=== PATIENT | female | born 1985 | race Caucasian/White ===

== ENCOUNTER 2017-07-07 14:59 | Outpatient (CLI) | payer OTHER | END 2017-07-07 15:00 | disposition home or self-care (01) | LOC: LAB.F 14:59 | PROVIDERS: ATTEND Midwife | DX: Z13.9 Encounter for screening, unspecified (principal) | CPT/HCPCS: 36415; 84144 ==

== ENCOUNTER 2017-09-01 08:00 | Outpatient (CLI) | payer OTHER | END 2017-09-01 08:01 | disposition home or self-care (01) | LOC: LAB.F 08:00 | PROVIDERS: ATTEND Midwife | DX: Z31.9 Encounter for procreative management, unspecified (principal) | CPT/HCPCS: 36415; 81599; 86644; 86645; 86900; 86901; 87497 ==

== ENCOUNTER 2018-03-09 14:46 | Outpatient (CLI) | payer OTHER | END 2018-03-09 14:47 | disposition home or self-care (01) | LOC: LAB.F 14:46 | PROVIDERS: ATTEND Midwife | DX: Z31.9 Encounter for procreative management, unspecified (principal) | CPT/HCPCS: 36415; 81599; 84702 ==

== ENCOUNTER 2018-06-01 16:17 | Outpatient (CLI) | payer MEDICAID | END 2018-06-01 16:18 | disposition home or self-care (01) | LOC: LAB 16:17 | PROVIDERS: ATTEND Nurse Practitioner Obstetrics & Gynecology | DX: Z34.00 Encounter for supervision of normal first pregnancy, unspecified trimester (principal) | CPT/HCPCS: 36415; 81599; 82105; 82677; 84702; 86336 ==

== ENCOUNTER 2018-07-07 13:22 | Outpatient (CLI) | payer MEDICAID ==
--- NOTE | 2018-07-11 07:11 | Ultrasound Report ---
Reason: SUPERVISION,NORMAL ,PRIMIGRAVIDA Procedure Date: 07/07/2018 Accession Number: [id number] / [id number] Procedure: US - OB Detailed Eval CPT Code: FULL RESULT: EXAM: COMPLETE OBSTETRICAL ULTRASOUND EXAM DATE: 07/07/2018 04:30 PM. CLINICAL HISTORY: anatomic survey. COMPARISON: None. TECHNIQUE: Real-time sonographic evaluation of the fetus performed by the service line coordinator. Multiple financial service representative static images were saved for review. DATING: Established EGA 21 weeks 4 days with ANUM 11/13/2018 based on physician stated dating. EGA 21 weeks 0 days with ANUM 11/17/2018 based on the current ultrasound. GENERAL EVALUATION Wilson . Cardiac activity: 150 bpm. movement: Visualized. Presentation: Variable. Placenta: Posterior position. No evidence for previa. Umbilical cord: 3 vessel cord. Central placental cord origin. Amniotic fluid: Subjectively normal. MVP 5.3 cm. KIM: 15.6 cm. BIOMETRY Bi-Parietal Diameter (BPD): 5.25 cm, 21 weeks 6 days. Head Circumference (HC): 19.21 cm, 21 weeks 3 days. Abdominal Circumference (AC): 16.76 cm, 21 weeks 5 days. Femur Length (FL): 3.59 cm, 21 weeks 2 days. Estimated Weight: 436 g, 45th percentile for 21 weeks 4 days. ANATOMY The intracranial structures, profile, face/nose/lips, spine, 4 chamber heart and outflow tracts, stomach, abdominal wall and cord insertion, diaphragm, kidneys, bladder, and extremities were visualized and demonstrate no abnormality. MATERNAL STRUCTURES Uterus: Unremarkable. Cervix: Long and closed. Transabdominal length 5.4 cm. Right ovary/adnexa: Unremarkable. Left ovary/adnexa: Unremarkable. Free fluid: None. IMPRESSION: 1. Wilson live intrauterine with gestational age 21 weeks 4 days based on stated dating. 2. Estimated weight is within expected limits for assigned dating. 3. Normal anatomic survey. No anatomic abnormalities are detected at this time. RADIA
== END 2018-07-07 13:23 | disposition home or self-care (01) ==
LOC: DI 13:22
PROVIDERS: ATTEND Nurse Practitioner Obstetrics & Gynecology
DX: Z34.00 Encounter for supervision of normal first pregnancy, unspecified trimester (principal)
CPT/HCPCS: 76811

== ENCOUNTER 2018-07-29 13:49 | Outpatient (CLI) | payer MEDICAID ==
[2018-07-29 15:07] LABS: HGB - HEMOGLOBIN 9.8 g/dL (12.0-16.0); MEAN CORPUSCULAR HEMOGLOBIN 30.7 pg (27.0-31.0); MEAN CORPUSCULAR HGB CONC 33.7 g/dL (32.0-36.0); MEAN PLATELET VOLUME 7.6 fL (7.9-10.8); RED BLOOD COUNT 3.18 10^6/uL (4.20-5.40); RED CELL DISTRIBUTION WIDTH 14.2 % (12.0-15.0); WHITE BLOOD COUNT 8.3 x10^3/uL (4.8-10.8)
== END 2018-07-29 13:50 | disposition home or self-care (01) ==
LOC: LAB 13:49
PROVIDERS: ATTEND Registered Nurse
DX: Z34.00 Encounter for supervision of normal first pregnancy, unspecified trimester (principal)
CPT/HCPCS: 36415; 82950; 85027; 86850

== ENCOUNTER 2018-09-03 10:12 | Outpatient (CLI) | payer MEDICAID ==
[2018-09-03 11:37] VITALS: BP 114/60
[2018-09-03 11:42] LABS: BILIRUBIN,URINE NEGATIVE (NEGATIVE); GLUCOSE, URINE (UA) NEGATIVE (NEGATIVE); KETONES,URINE (UA) NEGATIVE (NEGATIVE); LEUKOCYTE ESTERASE, URINE NEGATIVE (NEGATIVE); NITRITE,URINE NEGATIVE (NEGATIVE); OCCULT BLOOD,URINE NEGATIVE (NEGATIVE); PROTEIN,URINE NEGATIVE (NEGATIVE); UROBILINOGEN,URINE 0.2 (NORMAL) E.U./dL (NORMAL)
[2018-09-03 11:47] LABS: CLARITY,URINE CLEAR (CLEAR)
[2018-09-03 12:00] LABS: BACTERIA,URINE Rare /HPF (None Seen); RBC,URINE 0-5 /HPF (0-5); SQUAMOUS EPITHELIAL CELL,UR RARE Squamous (<= Few)
--- NOTE | 2018-09-05 13:47 | PROCEDURE REPORT ---
- HPI Diagnosis/Indication for NST: Other (abdominal discomfort) Current EDU 11/13/18 Gestation 29 Weeks and 6 Days 1 Para 0 Vital Signs Temperature 37 C 09/03/18 10:35 Heart Rate 66 09/03/18 10:35 Respiratory Rate 16 09/03/18 10:35 Blood Pressure 114/60 09/03/18 10:35 Temperature 37 C 09/03/18 10:35 Heart Rate 66 09/03/18 10:35 Respiratory Rate 16 09/03/18 10:35 Blood Pressure 114/60 09/03/18 10:35 O2 Saturation - NST Procedure NST reactive & reassuring over a period of 20 minutes, Cat I consistently; some uterine irritability, no contraction activity. - Results and Plan Findings/Impression: NST reactive, reassuring, cat I consistently; no uterine contractions; FFN collected by RN--negative; UA collected, negative. No progressive pain; etiology of discomfort likely musculoskeletal, particularly as s/p orgasm & not progressive over time. Plan: d/c to home w/ warning s/sx, reasons to call f/u in clinic w/ next scheduled visit, earlier PRN reviewed PTL s/sx, FKC; pt has emergency contact information
== END 2018-09-03 12:15 | disposition home or self-care (01) ==
LOC: WFO 10:12 → FBP 10:15 → WFO 12:15
PROVIDERS: ATTEND Registered Nurse
DX: O99.89 Other specified diseases and conditions complicating pregnancy, childbirth and the puerperium (principal); R10.9 Unspecified abdominal pain; Z3A.29 29 weeks gestation of pregnancy
CPT/HCPCS: 81001; 82731; 87086; 99213

== ENCOUNTER 2018-09-28 15:24 | Outpatient (CLI) | payer MEDICAID ==
[2018-09-28 15:38] LABS: HGB - HEMOGLOBIN 10.7 g/dL (12.0-16.0); MEAN CORPUSCULAR HEMOGLOBIN 31.2 pg (27.0-31.0); MEAN CORPUSCULAR HGB CONC 34.1 g/dL (32.0-36.0); MEAN CORPUSCULAR VOLUME 91.4 fL (81.0-99.0); MEAN PLATELET VOLUME 8.1 fL (7.9-10.8); RED BLOOD COUNT 3.42 10^6/uL (4.20-5.40); RED CELL DISTRIBUTION WIDTH 13.6 % (12.0-15.0)
== END 2018-09-28 15:25 | disposition home or self-care (01) ==
LOC: LAB 15:24
PROVIDERS: ATTEND Nurse Practitioner Obstetrics & Gynecology
DX: O99.019 Anemia complicating pregnancy, unspecified trimester (principal)
CPT/HCPCS: 36415; 85025; 85027

== ENCOUNTER 2018-10-17 15:16 | Outpatient (CLI) | payer MEDICAID | END 2018-10-17 23:59 | disposition home or self-care (01) | LOC: LAB.R 15:16 | PROVIDERS: ATTEND Obstetrics & Gynecology | DX: Z34.00 Encounter for supervision of normal first pregnancy, unspecified trimester (principal) | CPT/HCPCS: 87797 ==

== ENCOUNTER 2018-10-28 03:47 | Inpatient (IN) | payer MEDICAID ==
[2018-10-28] MEDS ORDERED: ONDANSETRON 4 MG/2 ML VIAL IVP PRN (03:50)
[2018-10-28] MEDS ORDERED: SODIUM CHLORIDE FLUSH 0.9% 10 ML SYRINGE IVP PRN (03:50)
[2018-10-28] MEDS ORDERED: fentaNYL 100 MCG/2 ML VIAL IVP PRN (03:50)
[2018-10-28] MEDS ORDERED: LACTATED RINGERS 1,000 ML IV SCH (04:00)
[2018-10-28] MEDS ORDERED: LIDOCAINE-MPF 1% 30 ML VIAL ONE ×2 (04:12→07:27)
[2018-10-28] MEDS ORDERED: miSOPROStol 200 MCG TABLET ONE (04:12)
[2018-10-28 04:21] LABS: BASOPHILS % (AUTO) 0.2 %; EOSINOPHILS % (AUTO) 0.2 %; HGB - HEMOGLOBIN 11.8 g/dL (12.0-16.0); LYMPHOCYTES # (AUTO) 1.8 10^3/uL (1.5-3.5); LYMPHOCYTES % (AUTO) 13.7 %; MEAN CORPUSCULAR HEMOGLOBIN 30.7 pg (27.0-31.0); MEAN CORPUSCULAR VOLUME 90.4 fL (81.0-99.0); MEAN PLATELET VOLUME 11.2 fL (7.9-10.8); MONOCYTES # (AUTO) 0.8 10^3/uL (0.0-1.0); NEUTROPHILS # (AUTO) 10.3 10^3/uL (1.5-6.6); NEUTROPHILS % (AUTO) 79.6 %; PLT - PLATELET COUNT 203 10^3/uL (130-450); RED BLOOD COUNT 3.84 10^6/uL (4.20-5.40); WHITE BLOOD COUNT 12.9 x10^3/uL (4.8-10.8)
--- NOTE | 2018-10-28 05:27 | HISTORY & PHYSICAL EXAMINATION ---
Admit History - Visit Reason Visit Reason: Contractions - : 1 Parity: 0 Premature: 0 Ectopic: 0 : 0 Care: positive: [facility] Risk/History: positive: None Complications This : positive: None Smoking Status: Never smoker - Mother's Labs Mother's Blood Type: positive: A Mother's RH: positive: Positive GBS: positive: Group B Step Negative Rubella Status: positive: Non-immune Review of Systems - Constitutional Constitutional: denies: Fatigue, Fever, Chills, Malaise - Eyes Eyes: denies: Blurred vision, Spots in vision, Dipolpia - Cardiovascular Cariovascular: denies: Chest pain, Edema - Respiratory Respiratory: denies: SOB at rest - Gastrointestinal Gastrointestinal: denies: Abdominal pain, Constipation, Diarrhea, Nausea, Vomiting - Integumentary Integumentary: denies: Rash, Pruritis - Neurological Neurological: denies: Headache, Dizziness - Psychiatric Psychiatric: denies: Depression, Anxiety Physical - Abdominal Exam Contraction Frequency (min/apart): 2-5 Contraction Intensity: positive: Strong Uterine Resting Tone: positive: Soft - Monitoring Heart Rate Baseline: 130 Strip Review: positive: Category I - Presentation Presentation: positive: Vertex - Vaginal Exam Dilation (in cm): 9 Effacement (%): 100 Station: positive: 0 - Speculum Exam Speculum Exam Performed: positive: No Plan for Labor - Plan For Labor I expect patient to be DC'd or transferred within 96 hours.: Yes Plan for Labor: HPI: This 33yo @ 37.5wks gestation by LMP c/w first trimester US. This is a result of IUI and she and her partner had 14 IUI attempts prior to conception. She has been a patient of [facility] for the duration of her which has been complicated only by first and second trimester bleeding in secondary to subchorionic hemorrhage as well as anemia for which she took ferrous sulfate bid since 28wks gestation. She presents to [facility] on 10/28/2018 at approximately 0330 with c/o contractions which began at approximately 2230 on 10/27/2018. Upon arrival she was noted to be 9/100/-1, vertex with intact membranes. She was admitted to [facility] for expecta nt management. G1: Current PMHx: Ovarian cysts Surgical Hx: [place] teeth removal Social Hx: Never smoker, No ETOH or IVDA. Debby Family Hx: Breast cancer - mother, maternal grandmother; heart disease Paternal grandfather; Lymphoma - Paternal grandmother labs: Hgb 10.7; Hct 31.2 PLT 191 A positive, antibody negative Rubella non-immune GC/CT neg Hep B neg RPR non-reactive HIV neg Hgb A1C 4.9 Hep C neg 1 hour GTT 87 GBS NEGATIVE Ultrasounds: FAS @ 21wks WNL. Posterior placenta, no previa. 3VC. Size c/w dating Physical Exam: Normocephalic, Atraumatic Heart RRR w/o M/G/R Lungs CTAB Abdomen gravid, soft, nontender EFW 3200g Bilateral LE's no edema Assessment: 33yo @ 37.5wks gestation by LMP c/w first trimester U/S Active labor GBS negative Plan: Admit to [facility] for expectant management Encouraged ambulation and position changes Anticipate spontaneous vaginal delivery
--- NOTE | 2018-10-28 05:30 | PROVIDER PROGRESS NOTE ---
Labor Progress Note - Uterine Monitoring Uterine Monitoring Mode: positive: External toco Contraction Frequency (min/apart): 2-4 Contraction Intensity: positive: Strong Uterine Resting Tone: positive: Soft - Monitoring Monitor Mode: positive: External ultrasound Heart Rate Baseline: 130 Heart Rate Variability: positive: Moderate (6-25 bmp) Accelerations: positive: Present, 15x15 Decelerations: positive: Early, Variable Strip Review: positive: Category I - Vaginal Exam Dilation (in cm): 10 Effacement (%): 100 Station: 0 - Labor Progress Note Labor Progress Note/Additional Text: S: Pt sitting comfortably in bed in an inclined position with a right later tilt. She is breathing through contractions and is coping well. Has begun to feel increased rectal pressure with contraction. She feels she does not want to engage in closed glotus pushing at this time and prefers to breathe through contractions. Debby is supportive at the bedside. O: FHR baseline 130, moderate variability + accels, intermittent early decelerations, occasional variable decelerations Contractions palpate strong every 2-4 minutes with soft resting tone. SVE c/c/0 AROM @ 0455 was noted to be small amount of clear fluid A: 33yo @ 3.,5wks gestation Active labor GBS neg FHR Category I P: Continuous monitoring Continue expectant management Encouraged position changes in bed. Reviewed pushing efforts and technique Anticipate spontaneous vaginal delivery
[2018-10-28] MEDS: OXYTOCIN/SODIUM CHLORIDE 500 ML IV PRN ×2 (07:00→07:30)
[2018-10-28] MEDS ORDERED: miSOPROStol 100 MCG TABLET PO SCH ×2 (08:00→09:00)
--- NOTE | 2018-10-28 08:36 | DELIVERY NOTE ---
Delivery Note - Labor Labor: positive: Augmented by ARM - Infant Delivery Method Delivery Method: positive: Spontaneous vaginal delivery - Presentation Presentation: positive: Vertex, MALENA - left occiput anterior - Nuchal Cord Nuchal Cord: positive: None - Amniotic Fluid Description Amniotic Fluid Description: positive: Clear - Episiotomy Type Episiotomy Type: positive: None - Laceration Laceration: positive: 1st degree, 2nd degree, Perineal, Vaginal - Suture Suture Type: positive: Vicryl Suture Size: positive: 2-0, 3-0 - Delivery Outcome Delivery Outcome: positive: Livebirth - [place]: positive: Placed in direct skin contact with mother, Bulb syringe, Stimulated, Warmed, [place] used [place] sex: positive: Female - Cord Cord: positive: 3 vessels - Placenta Placenta: positive: Intact, Spontaneous - Estimated Blood Loss Estimated Blood Loss (in cc): 400 - Post Delivery Events Post Delivery Events: positive: No post delivery events - Delivery Comments (Free Text/Narrative) Delivery Comments (Free Text/Narrative): Labor: 33yo @ 37.5wks gestation by LMP presented to [facility] with c/o contractions. UPon arrival she was noted to b 9/100/-1 and vertex with intact membranes. FHR pattern demonstrated a baseline 130s in a Category I pattern throughout labor. Normal labor course. AROM occurred at 0455 and was noted to be a small amount of clear fluid. Patient progressed to c/c/0 @0455. : Normal of viable female at 0649 on 10/28/2018. No nuchal cord. 's 9/9 at 1 and 5 min respectively. The was placed on maternal abdomen, stimulated, dried, and placed skin to skin. Pitocin administered via IV for hemostasis. The umbilical cord was allowed to stop pulsating at which time it was doubly clamped by CNM and cut by pt's partner. Cord blood was obtained. Placenta delivered spontaneously and intact at 0655. Rate of bleeding noted to be brisk despite vigorous fundual massage and pitocin running open to gravity. 800mcg BC misoprostol administered and rate of bleeding began to slow. EBL 400mL. Uterine fundus firm and there is no excessive bleeding. The perineum, vagina, and cervix were inspected and found to have 2nd degree vaginal laceration which was repaired using 2-[address]-1 needle in addition to a right labial laceration which was repaired using a 3-[address]-1 needle in standard fashion under sterile conditions. Vaginal and rectal examinations following repair were completed. Tissues well approximated. initiated. Family bonding well. Both mother and baby were left in stable condition.
[2018-10-28] MEDS ORDERED: OXYTOCIN/SODIUM CHLORIDE 500 ML IV PRN (08:37)
[2018-10-28] MEDS: IBUPROFEN 800 MG TABLET PO SCH ×3 (09:03→21:25)
[2018-10-28] MEDS: ACETAMINOPHEN 500 MG TABLET PO SCH ×2 (09:04→17:00)
[2018-10-28] MEDS: DOCUSATE SODIUM 100 MG CAPSULE PO SCH ×2 (09:04→21:25)
[2018-10-29] MEDS: ACETAMINOPHEN 500 MG TABLET PO SCH ×4 (01:31→19:50)
[2018-10-29] MEDS: IBUPROFEN 800 MG TABLET PO SCH ×3 (03:48→14:55)
--- NOTE | 2018-10-29 07:55 | Discharge Plan ---
Discharge Plan Problem Reviewed?: Yes Disposition: Home, Self Care Condition: Good Diet: Regular Activity Restrictions: No Restrictions Shower Restrictions: No Driving Restrictions: No Weight Bearing: Full Weight No Smoking: If you smoke, Please STOP! Call for help. Follow-up with: Halina Mondragon CNM, ARNP [Provider Admit Priv/Credential] -
--- NOTE | 2018-10-29 08:01 | PROVIDER PROGRESS NOTE ---
Subjective - Subjective Subjective: S: Bonding well with baby. without difficulty. Bleeding decreased and is light. Pain well controlled with oral medications. Partner supportive at the bedside. O: Heart RRR w/o M/G/R, lungs CTAB, abdomen soft and nontender with fundus firm at U-2, bilateral LE's no edema. BP 121/56, T 37.1, HR 79, RR 18 A: 33yo PPD#1 s/p TSVD of viable female infant 2nd degree perineal laceration - intact P: Reviewed self care and warning s/sx Advised continuation of PNV while Advised continuation of PO ibuprofen and tylenol for pain management PRN F/u in 1 week for support visit and in 3 weeks for routine visit or sooner PRN. Pt and partner verbalized understanding and agree to above plan. They deny further questions or concerns at this time. Objective - Vital Signs/Intake & Output Vital Signs: Vital Signs x48h Temp Pulse Resp BP Pulse Ox 10/29/18 04:05 37.1 C 79 18 121/56 L 99 10/29/18 00:00 37.0 C 84 18 95/73 100 Intake & Output: Intake & Output 10/26/18 10/27/18 10/28/18 10/29/18 23:59 23:59 23:59 23:59 Intake Total 1315 Output Total 2900 Balance -1585 - Lab Results Fish Bones: 10/28/18 04:10
--- NOTE | 2018-10-29 08:16 | DISCHARGE SUMMARY ---
Physician: GAGE Traore DATE OF ADMISSION: 10/28/2018 DATE OF DISCHARGE: 10/30/2018 DIAGNOSES ON ADMISSION 1. A 33-year-old G1, P0 at 37.5 weeks gestation. 2. Active labor. 3. Group B Streptococcus negative. DIAGNOSES ON DISCHARGE 1. A 33-year-old G1, P1-0-0-1, status post spontaneous vaginal delivery on 10/28/2018. 2. Second-degree perineal laceration. 3. . 4. Normal recovery. HISTORY OF PRESENT ILLNESS: She is a patient of [facility] who presented on 10/28/2018 with complaints of contractions. The patient was found to contract every 1-5 minutes and her cervix was 9 cm dilated, 100% effaced, and 0 station. She was augmented with artificial rupture of membranes. She progressed to spontaneously deliver a viable female named Lakhwinder at 0649 on 10/28/2018. Apgars were 9 and 9 at 1 and 5 minutes respectively. The patient received Pitocin via IV for hemostasis, in addition to 800 mcg of BC misoprostol for adequate hemostasis. EBL 400 mL The patient had a second-degree perineal laceration that was repaired using a 2-0 Vicryl on a CT1 needle in standard fashion under sterile conditions. She has been doing well in her course. She is ambulating and tolerating a regular diet. She is urinating without difficulty and her lochia is normal. Her pain is well controlled with oral medications. She will be discharged home today on day #1 with instructions to continue her vitamin while , and to take ibuprofen and Tylenol [id number] for pain management as needed. She intends to followup with myself at [facility] in 3 weeks for routine visit. She has been given precautions to call if she has any worsening fevers, chills, abdominal pain, increased bleeding or foul-smelling vaginal lochia. TD: 10/29/2018 08:06 WARNER
[2018-10-29] MEDS: DOCUSATE SODIUM 100 MG CAPSULE PO SCH ×2 (09:15→21:25)
[2018-10-29] MEDS: IBUPROFEN 800 MG TABLET PO PRN (23:52)
--- NOTE | 2018-10-30 08:39 | PROVIDER PROGRESS NOTE ---
Subjective - Subjective Subjective: FINAL PROGRESS NOTE: S: Bonding well with baby. Had some struggles with yesterday so they elected to stay last night rather than being discharged secondarily. They are feeling better today about being discharged but are continuing to have some struggles with . Pain well managed with oral medications. Bleeding decreased and is light. Partner supportive at the bedside. O: BP 127/84, HR 83, T 36.9, RR 16 A: 33yo -->P1 PPD#2 s/p TSVD of viable female infant 2nd degree perineal laceration - intact P: Discharge home today on PPD#2 - Discharge held yesterday and discharge summary revised accordingly. Reviewed pp self care and warning s/sx and when to present Lengthy discussion about and timing of feeding. F/u in 1 week at [facility] for support visit. Pt verbalized understanding and agrees to above plan. She denies further questions or concerns at this time. Objective - Vital Signs/Intake & Output Vital Signs: Vital Signs x48h Temp Pulse Resp BP Pulse Ox 10/30/18 06:20 36.9 C 83 16 127/84 H 100 Intake & Output: Intake & Output 10/27/18 10/28/18 10/29/18 10/30/18 23:59 23:59 23:59 23:59 Intake Total 1315 Output Total 2900 Balance -1585 - Lab Results Fish Bones: 10/28/18 04:10
[2018-10-30] MEDS: DOCUSATE SODIUM 100 MG CAPSULE PO SCH (09:50)
[2018-10-30] MEDS: ACETAMINOPHEN 500 MG TABLET PO SCH (09:50)
[2018-10-30] MEDS: IBUPROFEN 800 MG TABLET PO PRN (09:50)
[2018-10-30] MEDS ORDERED: MEASLES,MUMPS & RUBELLA VACC 0.5 ML VIAL SUBQ ONE (11:29)
[2018-10-30 13:48] VITALS: BP 126/80
--- NOTE | 2018-10-30 14:24 | Labor Flowsheet ---
Labor Flowsheet Datetime Report Generated by CPN: 10/30/2018 14:23 Datetime: 10/30/2018 13:44 VITAL SIGNS NBP Sys/Maribell/Mean (mmHg): 126 : 80 : 92 Pulse: 89 SpO2 (%): 100 LaborFlag: Labor Datetime: 10/28/2018 06:48 UTERINE ACTIVITY Monitor Mode: External Monitor Interventions for UA: [place] Adjusted Frequency (min): 3 Quality: Moderate Duration (sec): 80-120 Pattern: Normal: <= 5 Contractions in 10 Minutes Resting Tone (Palpate): Relaxed ASSESSMENT A Monitor Mode: External US Monitor Interventions for FHR: Ultrasound Adjusted FHR Baseline Rate : 110 Variability: Moderate 6-25 bpm Accelerations: None Decelerations: Early; Variable Category: Category II Comments: loss of tracing with contraction and pushing Pain Presence: Constant Pain Type: Burning; Contraction Pain Location: Perineum Pain Relief Measures: Comfort Measures Pain Coping: Breathing Through Contractions; Declines Medication or Epidural PATIENT CARE Oxygen Method: Room Air Comfort Measures: Breathing/Relaxation; Coaching; Hot/Cold Pack; Family Support STAGE 2 Pushing: Urge to Push Pushing Position: Pushing with Contractions; Pushing Right Side Pushing Progress: Descent with Pushing; Perineal Bulging; Rectal Bulging; Presenting Part Visible; with Pushing; Pushing Effectively with Contractions Datetime: 10/28/2018 06:45 I/O Interventions: Ice Chips Given Datetime: 10/28/2018 06:30 Patient Position/Activity: Left Tilt COMMUNICATION Communication: Provider at Bedside Provider Notified (Name): AHanna Ortegar CNM Datetime: 10/28/2018 05:54 Respirations: 20 Datetime: 10/28/2018 05:44 PAIN Pain Scale: 8 Hygiene: Underpad Changed Datetime: 10/28/2018 04:55 VAGINAL EXAM Dilatation (cm): 10.0 Effacement (%): 100 Exam by: A Alanna CNM Membranes Rupture Method: Spontaneous Amniotic Fluid Color: Clear Amniotic Fluid Amount: Small Amniotic Fluid Odor: Normal Datetime: 10/28/2018 04:32 Temperature (C): 36.6 Datetime: 10/28/2018 04:29 MATERNAL ASSESSMENT Level of Consciousness: Fully Conscious Headache: Denies Breath Sounds, Left: Clear and Equal Breath Sounds, Right: Clear and Equal Nausea/Vomiting: Denies RUQ Epigastric Pain: Denies
== END 2018-10-30 14:20 | disposition home or self-care (01) | DRG 807 ==
LOC: WFO 03:47 → FBP 03:48 → WFO 03:55 → FBP 03:56
PROVIDERS: ADMIT Nurse Practitioner Obstetrics & Gynecology; ATTEND Nurse Practitioner Obstetrics & Gynecology
PROC: 10E0XZZ Delivery of Products of Conception, External Approach (ICD-10-PCS; principal; 2018-10-28)
PROC: 0KQM0ZZ Repair Perineum Muscle, Open Approach (ICD-10-PCS; 2018-10-28)
PROC: 0HQ9XZZ Repair Perineum Skin, External Approach (ICD-10-PCS; 2018-10-28)
PROC: 10907ZC Drainage of Amniotic Fluid, Therapeutic from Products of Conception, Via Natural or Artificial Opening (ICD-10-PCS; 2018-10-28)
DX: O70.1 Second degree perineal laceration during delivery (principal); Z37.0 Single live birth; O70.0 First degree perineal laceration during delivery; Z3A.37 37 weeks gestation of pregnancy
CPT/HCPCS: 85025; 99213; A9270; J7120

== ENCOUNTER 2020-01-26 10:59 | Outpatient (CLI) | payer MEDICAID ==
--- NOTE | 2020-01-26 16:20 | XRAY Report ---
PROCEDURE: Foot 2 View RT INDICATIONS: TOE PAIN, RIGHT TECHNIQUE: 2 views of the foot were acquired. COMPARISON: None. FINDINGS: Bones: No fractures or dislocations. There is a minimal hallux valgus. No suspicious bony lesions. Soft tissues: There is mild soft tissue swelling medial to the first metatarsal head. There is a sma ll tibiotalar joint effusion. Achilles tendon appears intact. IMPRESSION: 1. Minimal hallux valgus with mild soft tissue swelling medial to the first metatarsal head suggestiv e of a bunion. Reviewed by: Nash Banuelos MD on 01/26/2020 3:19 PM CHRISTIANO Approved by: Nash Banuelos MD on 01/26/2020 3:19 PM AKBUCK Station ID: [id number]
== END 2020-01-26 11:00 | disposition home or self-care (01) ==
LOC: DI.S 10:59
PROVIDERS: ATTEND Registered Nurse
DX: M79.674 Pain in right toe(s) (principal); M20.11 Hallux valgus (acquired), right foot

== ENCOUNTER 2020-02-02 07:00 | Outpatient (CLI) | payer MEDICAID ==
[2020-02-02 20:16] LABS: CANDIDA GROUP DNA POSITIVE (NEGATIVE); CANDIDA KRUSEI DNA NEGATIVE (NEGATIVE); TRICHOMONAS VAGINALIS DNA NEGATIVE (NEGATIVE)
== END 2020-02-02 23:59 | disposition home or self-care (01) ==
LOC: LAB.R 07:00
PROVIDERS: ATTEND Nurse Practitioner Obstetrics & Gynecology
DX: N89.8 Other specified noninflammatory disorders of vagina (principal); L29.8 Other pruritus
CPT/HCPCS: 87661; 87801

== ENCOUNTER 2020-04-11 11:12 | Outpatient (CLI) | payer MEDICAID | END 2020-04-11 11:13 | disposition home or self-care (01) | LOC: COV 11:12 | PROVIDERS: ATTEND Family Medicine | DX: R50.9 Fever, unspecified (principal); R05 Cough; M79.10 Myalgia, unspecified site; R53.83 Other fatigue; R07.0 Pain in throat; R19.7 Diarrhea, unspecified; R09.81 Nasal congestion; Z20.828 Contact with and (suspected) exposure to other viral communicable diseases ==

== ENCOUNTER 2023-03-31 09:17 | Outpatient (CLI) | payer MEDICAID ==
[2023-03-31 14:37] LABS: BASOPHILS % (AUTO) 0.7 %; EOSINOPHILS # (AUTO) 0.1 10^3/uL (0.0-0.7); EOSINOPHILS % (AUTO) 2.4 %; HCT - HEMATOCRIT 37.6 % (37.0-47.0); HGB - HEMOGLOBIN 11.9 g/dL (12.0-16.0); LYMPHOCYTES # (AUTO) 1.8 10^3/uL (1.5-3.5); LYMPHOCYTES % (AUTO) 39.9 %; MEAN CORPUSCULAR HGB CONC 31.6 g/dL (32.0-36.0); MEAN CORPUSCULAR VOLUME 91.7 fL (81.0-99.0); MEAN PLATELET VOLUME 10.4 fL (7.9-10.8); MONOCYTES # (AUTO) 0.4 10^3/uL (0.0-1.0); MONOCYTES % (AUTO) 8.9 %; NEUTROPHILS # (AUTO) 2.2 10^3/uL (1.5-6.6); NEUTROPHILS % (AUTO) 47.9 %; PLT - PLATELET COUNT 239 10^3/uL (130-450); RED CELL DISTRIBUTION WIDTH 13.1 % (12.0-15.0); WHITE BLOOD COUNT 4.5 x10^3/uL (4.8-10.8)
[2023-03-31 14:57] LABS: % IRON SATURATION 46 % (20-50); ALBUMIN 4.5 g/dL (3.2-5.5); ALBUMIN/GLOBULIN RATIO 1.9 (1.0-2.2); ALKALINE PHOSPHATASE 51 IU/L (42-121); ALT ALANINE AMINOTRANSFERASE 9 IU/L (10-60); AST ASPARTATE AMINOTRANSFERASE 10 IU/L (10-42); BILIRUBIN,TOTAL 2.1 mg/dL (0.2-1.0); BUN - BLOOD UREA NITROGEN 15 mg/dL (6-20); CALCIUM 9.6 mg/dL (8.5-10.3); CARBON DIOXIDE - CO2 30 mmol/L (21-32); CHLORIDE 106 mmol/L (101-111); CHOL/HDL RATIO 2.4 (<4.4); CHOLESTEROL 183 mg/dL; CREATININE 0.5 mg/dL (0.6-1.3); GFR - MDRD 138 (>89); GLUCOSE 91 mg/dL (74-104); HDL CHOLESTEROL 76 mg/dL; IRON 170 ug/dL (50-212); SODIUM 141 mmol/L (135-145); TOTAL IRON BINDING CAPACITY 372 ug/dL (250-450); TOTAL PROTEIN 6.9 g/dL (6.4-8.9); TRANSFERRIN 266 mg/dL (203-362); TRIGLYCERIDES 33 mg/dL (48-352)
[2023-03-31 15:03] LABS: THYROID STIMULATING HORMONE 0.93 uIU/mL (0.34-5.60)
[2023-03-31 15:08] LABS: FERRITIN 14.9 ng/mL (11.0-306.8)
== END 2023-03-31 09:18 | disposition home or self-care (01) ==
LOC: LAB.S 09:17
PROVIDERS: ATTEND Registered Nurse
DX: Z13.21 Encounter for screening for nutritional disorder (principal); Z86.2 Personal history of diseases of the blood and blood-forming organs and certain disorders involving the immune mechanism; Z13.228 Encounter for screening for other metabolic disorders; Z13.220 Encounter for screening for lipoid disorders; Z13.29 Encounter for screening for other suspected endocrine disorder; Z13.0 Encounter for screening for diseases of the blood and blood-forming organs and certain disorders involving the immune mechanism
CPT/HCPCS: 36415; 80053; 80061; 82306; 82728; 83540; 83721; 84443; 84466; 85025

== ENCOUNTER 2023-05-19 14:47 | Outpatient (CLI) | payer MEDICAID ==
--- NOTE | 2023-05-24 13:13 | Mammography Report ---
BILATERAL FIRST EVER DIGITAL SCREENING MAMMOGRAM 3D/2D WITH EXAGGERATED CC: 05/19/2023 CLINICAL: Routine screening. Family history of breast cancer. No prior exams were available for comparison. Both breasts are extremely dense, which lowers the sensitivity of mammography (category d />75% gland ular tissue). No significant masses, calcifications, or other findings are seen in either breast. IMPRESSION: NEGATIVE There is no mammographic evidence of malignancy. A 1 year screening mammogram is recommended. Based on Tyrer-Cuzick model (a risk assessment model), the patient's lifetime risk is 21.7% and her 1 0 year risk is 2.4%. If a patient has an elevated risk, a more comprehensive evaluation should be con sidered and/or a referral to a genetic counselor. The [place] [employer], [place] [employer], and NCCN Guidelines advise the consideration of Breast MRI as an adjunct to screening mammog russell in patients whose "Lifetime risk to develop breast cancer" is 20% or higher. This exam was interpreted at Station ID: [id number]. NOTE: For mammograms, a report in lay terms will be sent to the patient. Approximately 15% of breast malignancies will not be visualized mammographically. In the management of a palpable breast mass, a negative mammogram must not discourage biopsy of a clinically suspicious lesion. Electronically Signed By: Roxanna Arcos M.D., PH.D patrick/[email or web address]:05/21/2023 20:43:52 letter sent: No_Letter ACR BI-RADS Category 1: Negative 3341F PARENCHYMAL PATTERN: (VD) - The breast(s) demonstrate(s) extremely dense parenchyma, limiting the sen sitivity of mammography. BI-RADS CATEGORY: (1) - 1 Mammogram [id number] 1 year screening LATERALITY: (B)
== END 2023-05-19 14:48 | disposition home or self-care (01) ==
LOC: DI.S 14:47
PROVIDERS: ATTEND Registered Nurse
DX: Z12.31 Encounter for screening mammogram for malignant neoplasm of breast (principal); Z80.3 Family history of malignant neoplasm of breast; R92.343 Mammographic extreme density, bilateral breasts

== ENCOUNTER 2023-07-28 13:43 | Outpatient (CLI) | payer MEDICAID ==
--- NOTE | 2023-07-29 09:41 | Ultrasound Report ---
LIMITED ULTRASOUND OF RIGHT BREAST: 07/28/2023 CLINICAL: Abnormal MRI. Comparison is made to exams dated: 07/28/2023 ultrasound - [facility], 06/28/2023 br east MRI - [facility], and 05/19/2023 mammogram - [facility]. Color flow and real-time ultrasound of the right breast 11 o'clock region were performed on the areas of interest. Maher scale images of the real-time examination were reviewed. There is a 0.9 cm x 0.9 cm x 0.5 cm oval mass in the right breast at 10 o'clock posterior depth. Thi s oval mass is hypoechoic with internal echoes and posterior acoustic enhancement. This correlates w ith breast MRI findings. IMPRESSION: PROBABLY BENIGN The 0.9 cm x 0.9 cm x 0.5 cm oval mass in the right breast likely represents a fibroadenoma and is pr obably benign. A follow-up ultrasound in 6 months is recommended to demonstrate stability. This exam was interpreted at Station ID: [id number]. Electronically Signed By: Venita campbell/:07/28/2023 14:49:45 Ultrasound BI-RADS: 3 Probably benign BI-RADS CATEGORY: (3) - 3 Ultrasound [id number] 6 month follow-up LATERALITY: (B)
--- NOTE | 2023-07-29 09:41 | Ultrasound Report ---
LIMITED ULTRASOUND OF LEFT BREAST: 07/28/2023 CLINICAL: Abnormal MRI. Comparison is made to exams dated: 06/28/2023 breast MRI - [facility] and 05/19/2023 mammogram - [facility]. Color flow and real-time ultrasound of the left breast 9-11 o'clock region were performed on the are as of interest. Maher scale images of the real-time examination were reviewed. There is a 1.1 cm x 0.8 cm x 0.5 cm oval mass in the left breast at 11 o'clock posterior depth. This oval mass is hypoechoic with a well-defined boundary and posterior acoustic enhancement. This corre lates with breast MRI findings. IMPRESSION: PROBABLY BENIGN The 1.1 cm x 0.8 cm x 0.5 cm oval mass in the left breast likely represents a fibroadenoma and is pro bably benign. A follow-up ultrasound in 6 months is recommended to demonstrate stability. This exam was interpreted at Station ID: [id number]. Electronically Signed By: Venita Campbell M.D. lk/:07/28/2023 14:48:02 Ultrasound BI-RADS: 3 Probably benign BI-RADS CATEGORY: (3) - 3 Ultrasound [id number] 6 month follow-up LATERALITY: (B)
== END 2023-07-28 13:44 | disposition home or self-care (01) ==
LOC: DI 13:43
PROVIDERS: ATTEND Registered Nurse
DX: N63.11 Unspecified lump in the right breast, upper outer quadrant (principal); N63.22 Unspecified lump in the left breast, upper inner quadrant

== ENCOUNTER 2023-08-16 01:04 | Emergency (ER) | payer MEDICAID ==
[2023-08-16 01:24] VITALS: O2SAT 98
[2023-08-16 01:38] LABS: BASOPHILS % (AUTO) 0.4 %; EOSINOPHILS # (AUTO) 0.2 10^3/uL (0.0-0.7); HCT - HEMATOCRIT 35.7 % (37.0-47.0); LYMPHOCYTES # (AUTO) 1.9 10^3/uL (1.5-3.5); LYMPHOCYTES % (AUTO) 41.5 %; MEAN CORPUSCULAR HGB CONC 30.8 g/dL (32.0-36.0); MEAN CORPUSCULAR VOLUME 90.8 fL (81.0-99.0); MEAN PLATELET VOLUME 9.7 fL (7.9-10.8); MONOCYTES # (AUTO) 0.3 10^3/uL (0.0-1.0); MONOCYTES % (AUTO) 6.6 %; NEUTROPHILS # (AUTO) 2.2 10^3/uL (1.5-6.6); NEUTROPHILS % (AUTO) 47.3 %; PLT - PLATELET COUNT 238 10^3/uL (130-450); RED BLOOD COUNT 3.93 10^6/uL (4.20-5.40); RED CELL DISTRIBUTION WIDTH 12.5 % (12.0-15.0); WHITE BLOOD COUNT 4.6 x10^3/uL (4.8-10.8)
--- NOTE | 2023-08-16 02:03 | ED Physician Documentation ---
PD HPI FEMALE - Stated complaint Stated Complaint: - Chief complaint Chief Complaint: General - History obtained from History obtained from: Patient - Additional information Additional information: Patient is a 38-year-old presenting for evaluation of heavy vaginal bleeding. Patient started her menstrual cycle yesterday and started having heavy bleeding this evening where she was needing to empty her menstrual cup several times. She states that normally she has heavy bleeding some point during the second day of her period but usually it only lasts an hour or so and the seem to be lasting longer. She does have a history of heavy periods in the past and has been followed by [facility] care clinic.She did take a dose of ibuprofen as she was told to try this in the past with heavy periods.She has been hesitant to have an IUD placed or try hormonal medications to help regulate her periods in the past.She denies any significant pain. She denies dizziness or lightheadedness. She denies concerns for as she is to her , whom is the only person she is sexually active with.She denies abnormal vaginal discharge or concerns for sexually transmitted infections. Review of Systems Cardiac: denies: Chest pain / pressure Respiratory: denies: Dyspnea GI: denies: Abdominal Pain : reports: Vaginal bleeding. denies: Dysuria PD PAST MEDICAL HISTORY - Past Medical History Past Medical History: No - Past Surgical History Past Surgical History: No - Allergies Allergies/Adverse Reactions: Allergies Allergy/AdvReac Type Severity Reaction Status Date / Time No Known Drug Allergies Allergy Verified 08/16/23 01:15 - Social History Does the pt smoke?: No Smoking Status: Never smoker PD ED PE NORMAL - General General: Alert and oriented X 3, No acute distress, Well developed/nourished - HEENT HEENT: Atraumatic - Neck Neck: Supple, no meningeal sign - Cardiac Cardiac: RRR, Strong equal pulses - Respiratory Respiratory: No respiratory distress, Clear bilaterally - Abdomen Abdomen: Normal bowel sounds, Soft, Non tender, Non distended - Female Female : [employer] Supervisor present (Fabiola RHODES), Other (Normal external exam, moderate amount of blood in vaginal canal coming from cervical os, Small clot removed, no discharge, no tenderness) Results - Vitals Vitals: Vital Signs - 24 hr 08/16/23 08/16/23 08/16/23 01:12 01:15 02:05 Temperature 36.7 C Heart Rate 80 78 72 Respiratory 18 18 Rate Blood Pressure 147/88 H 140/82 H O2 Saturation 98 98 Oxygen O2 Source Room air - Labs Labs: Laboratory Tests 08/16/23 01:34 WBC 4.6 L RBC 3.93 L Hgb 11.0 L Hct 35.7 L MCV 90.8 MCH 28.0 MCHC 30.8 L RDW 12.5 Plt Count 238 MPV 9.7 Neut # (Auto) 2.2 Lymph # (Auto) 1.9 [place] # (Auto) 0.3 Eos # (Auto) 0.2 Baso # (Auto) 0.0 Absolute Nucleated RBC 0.00 Nucleated RBC % 0.0 PD Medical Decision Making - ED course ED course: Patient is a 38-year-old female presenting for evaluation of heavy vaginal bleeding.She is and only sexually active with her female spouse ther efore there is no concerns for . Abdominal exam is benign. Pelvic exam was performed. Patient without concerns for sexually transmitted infections. Discussed options for treatment including initiation of hormonal treatment versus observation and close follow-up. CBC was reviewed and hemoglobin is unchanged from a prior labs. Patient at this time it feels that the bleeding has started to slow down and would like to continue with observation at home and will follow-up with the women's clinic. She understands strict return precautions for worsening symptoms. Departure - Departure Disposition: 01 Home, Self Care Clinical Impression: Abnormal vaginal bleeding Condition: Stable Instructions: ED Bleed Irregular Vaginal Follow-Up: Ingrid Wright ARNP [Provider Admit Priv/Credential] - Comments: Your vital signs and hemoglobin are stable tonight. I would recommend close follow-up with your provider at the women's clinic and would recommend calling in the morning. Please return to the ER with any worsening symptoms such as worsening pain, heavier bleeding, feeling dizzy or lightheaded or with any concerns. Forms: PCP List Discharge Date/Time: 08/16/23 02:05
[2023-08-16 02:17] VITALS: BP 140/82
== END 2023-08-16 02:05 | disposition home or self-care (01) ==
LOC: ED 01:04
DX: N93.8 Other specified abnormal uterine and vaginal bleeding (principal)
CPT/HCPCS: 36415; 85025; 99283

== ENCOUNTER 2023-10-13 13:44 | Outpatient (CLI) | payer MEDICAID ==
--- NOTE | 2023-10-13 19:58 | Ultrasound Report ---
PROCEDURE: Pelvic w/Transvaginal INDICATIONS: HEAVY MENSTRATION TECHNIQUE: Real-time scanning was performed of the pelvic organs, with image documentation. Additional endovagi nal scanning was necessary due to incomplete visualization of the adnexal and endometrial structures by transabdominal scanning. COMPARISON: None. FINDINGS: Uterus: Uterus is anteverted and normal in size at 7.7 x 4.5 x 6.3 cm. The myometrium is homogeneou s. The endometrium measures 8 mm in combined thickness. IUD is noted in the endometrial cavity. Sm all left posterior subserosal uterine fibroid measuring 1.5 x 1.4 x 1.3 cm. Ovaries: The right ovary measures 3.3 x 2.2 x 2.1 cm, with a calculated ovarian volume of 8 cc. The left ovary measures 3.5 x 2.3 x 1.7 cm, with a calculated ovarian volume of 7.2 cc. The ovaries have a normal sonographic appearance. Less than 12 follicles can be seen in each ovary. No adnexal mass es are seen. No cystic lesions measuring greater than 3 cm. Other: No pathologic free abdominal or pelvic fluid. IMPRESSION: Pelvic ultrasound without acute sonographic abnormalities. IUD present within the endometrial cavity. Small 1.5 cm subserosal uterine fibroid. Normal appearance of the bilateral ovaries. Reviewed by: Dion Bullock MD on 10/13/2023 7:57 PM PDT Approved by: Dion Bullock MD on 10/13/2023 7:57 PM PDT Station ID: [id number]
== END 2023-10-13 13:45 | disposition home or self-care (01) ==
LOC: DI 13:44
PROVIDERS: ATTEND Nurse Practitioner
DX: D25.2 Subserosal leiomyoma of uterus (principal); N92.0 Excessive and frequent menstruation with regular cycle; Z97.5 Presence of (intrauterine) contraceptive device